=== PATIENT | female | born 1965 | race African-American/Black ===

== ENCOUNTER → 2016-11-19 | Outpatient (CLI) | payer OTHER ==
[~2016-11-19] MED LIST: ALBUTEROL17 GM INH; ALL DAY ALLERGY10 M3 PO; BREO ELLIPTA 11 EACH INH; DOK PLUS TABLE1 EACH PO; FLUOXETINE HCL40 MG PO; LISINOPRIL20 MG PO; MOBIC15 MG PO; NORCO1 TAB 10/3 PO; PERCOCET10 PO; PROZAC40 M1 PO; SLOW RELEASE47.5 MG PO; XARELTO10 MG PO; ZESTRIL40 MG PO
--- NOTE | ~2016-11-19 | EKG ---
PATIENT: TIFFANY TELLEZ UNIT #: [id number] Ventricular Rate: 63 BPM Atrial Rate: 63 BPM P-R Interval: 200 ms QRS Duration: 80 ms Q-T Interval: 400 ms QTC Calculation(Bezet): 409 ms P Mccurtain: 53 degrees Calculated R Mccurt[place]: 35 degrees Calculated T Mccurtain: 27 degrees Diagnosis Line: Normal sinus rhythm Diagnosis Line: Normal ECG Diagnosis Line: When compared with ECG of 21-MAY-2016 08:23, Diagnosis Line: No significant change was found Diagnosis Line: Confirmed by LIO PAZ MD ([id number]) on Diagnosis Line: 11/19/2016 5:10:13 PM INTERPRETING MD: JACKSON MORSE
[2016-11-19 09:38] LABS: HEMATOCRIT 37.7 % (35.0-45.0); HEMOGLOBIN 12.7 gm/dL (12.0-16.0); MEAN CELL VOLUME 88.3 FL (83-96); MEAN CORPUSCULAR HEMOGLOBIN 29.8 PG (28-34); MEAN CORPUSCULAR HGB CONC 33.7 g/dL (30-36); MEAN PLATELET VOLUME 9.2 FL (6.5-11.5); RED BLOOD COUNT 4.27 X10e (3.90-5.30); RED CELL DISTRIBUTION WIDTH 14.5 % (11.0-15.5); WHITE BLOOD COUNT 4.9 X10e3 (4.0-10.5)
[2016-11-19 09:43] LABS: URINE APPEARANCE CLEAR; URINE BILIRUBIN NEG (NEG); URINE BLOOD NEG (NEG); URINE COLOR YELLOW; URINE GLUCOSE NEG (NEG); URINE KETONE NEG (NEG); URINE LEUKOCYTE ESTERASE NEG (NEG); URINE NITRATE NEG (NEG); URINE PH 5.5 (5-8); URINE PROTEIN NEG (NEG); URINE SPECIFIC GRAVITY 1.014 (1.003-1.035); URINE UROBILINOGEN 0.2 MG/DL (NEG)
[2016-11-19 09:55] LABS: URINE SOURCE CLEAN CATCH
[2016-11-19 09:56] LABS: CULTURE INDICATED? NO
[2016-11-19 10:30] LABS: BUN/CREATININE RATIO 14.44; CALCIUM SERUM 9.4 mg/dL (8.4-10.2); CREATININE SERUM 0.9 mg/dL (0.6-1.4); GLOM FILT RATE Estimated 84.7 mL/min (>60)
== END | disposition home or self-care (01) ==
LOC: CAMB 07:05
PROVIDERS: Orthopaedic Surgery
DX: Z01.818 Encounter for other preprocedural examination (principal); M17.12 Unilateral primary osteoarthritis, left knee
CPT/HCPCS: 36415; 80048; 81003; 85027; 86850; 86900; 86901; 87070; 93005

== ENCOUNTER 2016-12-03 10:51 | Inpatient (IN) | payer OTHER ==
[~2016-12-03] VITALS: Ht 162.6 cm; Wt 104.7 kg
--- NOTE | ~2016-12-03 | HP ---
Unit #: [id number] #: [id number] Patient: TIFFANY TELLEZ [id number] [address] [place], [place] [address] [id number] O MR#: [id number] NAME: TIFFANY TELLEZ ROOM: Age: Sex: F Admission Date: 12/03/2016 : 1965 Attending Physician: Sultana Mcdermott M.D. Primary Care Physician: Generic Doctor Not In System HISTORY AND PHYSICAL CHIEF COMPLAINT Left knee pain. HISTORY OF PRESENT ILLNESS The patient is a 51-year-old female who has undergone previous end-stage right knee arthritis treatment with total knee arthroplasty six months ago. She is now admitted for left total knee arthroplasty for similar end-stage knee arthritis affecting primarily her lateral compartment. She understands the risks of the procedure to include bleeding, infection, nerve damage, loosening of the prosthesis, infection of the prosthesis, need for multiple revision surgeries in the future. She has failed conservative care to include multiple cortisone injections, physical therapy, bracing and oral narcotics. She has 11 degrees of genu valgum. PAST MEDICAL HISTORY Past medical history is remarkable for hypertension, allergic rhinitis, ankle avascular necrosis, depression, hypertension, migraines and rheumatoid arthritis. PAST SURGICAL HISTORY , hysterectomy, ankle fusion, knee arthroscopy. HOME MEDICATIONS Fluoxetine, Vicodin, lisinopril, lorazepam, oxycodone, promethazine. ALLERGIES None. FAMILY HISTORY Alcohol abuse, arthritis, asthma, breast cancer, stroke, depression, colon cancer. SOCIAL HISTORY The patient is a [id number] smoker. She drinks alcohol socially. PHYSICAL EXAMINATION GENERAL: In general this is a well-developed well-nourished female in no acute distress. HEENT: Pharynx is clear. NECK: The neck is supple, without masses. HEART: Exam reveals a regular sinus rhythm, without murmurs or gallops. LUNGS: The lungs are clear. ABDOMEN: The abdomen is soft and nontender, without masses or Unit #: [id number] #: [id number] Patient: TIFFANY TELLEZ organomegaly. EXTREMITIES: Evaluation of the left knee shows 10 degree of genu valgum. Range of motion is 0 to 130 degrees. The medial and lateral collateral ligaments are stable. The patient is maximally tender in the lateral joint line. Mian test is negative. Pivot shift test is negative. Posterior tibial sag test is negative. Pulses are intact. DIAGNOSTIC STUDIES IMAGING: Standing x-rays of the left knee show lateral joint space narrowing with subchondral sclerosis of the lateral compartment and osteophyte formation. ADMITTING DIAGNOSIS End-stage left knee arthritis with lateral compartment arthritis and genu valgum. PLAN The patient has failed conservative care. She is admitted for elective left total knee arthroplasty. Risks and benefits have been described above and she agrees to proceed. Dictated by Deborah Gold/marce TD: 12/02/2016 20:36 JOB #: [id number] HISTORY AND PHYSICAL Page 1 of 1 X Shaheen Mcdermott MD X HISTORY AND PHYSICAL
--- NOTE | ~2016-12-03 | DS ---
Unit #: [id number] #: [id number] Patient: TIFFANY TELLEZ [id number] [address] [place], [place] [address] [id number] I MR#: [id number] NAME: TIFFANY TELLEZ ROOM: 448 Age: 51 Sex: F Admission Date: 12/03/2016 : 1965 Discharge Date: 12/05/2016 Attending Physician: Sultana Mcdermott M.D. Primary Care Physician: Generic Doctor Not In System DISCHARGE SUMMARY CHIEF COMPLAINT Left knee pain. HISTORY OF PRESENT ILLNESS The patient is a 51-year-old female with endstage left knee arthritis affecting primarily her lateral compartment. She has a significant valgus deformity. She has not responded to conservative care. She is admitted for elective total knee arthroplasty. HOSPITAL COURSE The patient was taken to the operating room on the date of admission, where she underwent left total knee arthroplasty using the [place] Triathlon posterior constrained knee. There were no operative complications. On her first postoperative day she pulled out her drain inadvertently. Dressing was changed. Wounds were healing well. She was seen by physical therapy on a daily basis and instructed on weightbearing and range of motion exercises. She remained afebrile with stable vital signs. Her hematocrit was 32.8% on the first postoperative day and 28.5% hematocrit on the second postoperative day. Her MESH WORKER was discontinued on the second postoperative day. She is ready for discharge on the third postoperative day. FINAL DIAGNOSIS Left knee degenerative arthritis. DISPOSITION/RECOMMENDATIONS 1. The patient is discharged home. She will weight bear as tolerated on her left leg. Will arrange home physical therapy for the patient to be seen. Her dressing will be changed on a daily basis. 2. Follow up in my office in 10-14 days for wound check and possible staple removal. DISCHARGE MEDICATIONS 1. Home medications. 2. Percocet 5/325 mg 1-2 p.o. q.4-6 h. p.r.n. pain. 3. Xarelto 10 mg p.o. daily for a total of 2 weeks postoperatively. Dictated by.Deborah Patiño/raina TD: 12/06/2016 10:56 Unit #: [id number] #: [id number] Patient: TIFFANY TELLEZ JOB #: [id number] DISCHARGE SUMMARY Page 1 of 1 X Shaheen Mcdermott MD X DISCHARGE SUMMARY
--- NOTE | ~2016-12-03 | OR ---
Unit #: [id number] #: [id number] Patient: TIFFANY TELLEZ [id number] [address] [place], [place] [address] [id number] MR#: [id number] NAME: TIFFANY TELLEZ ROOM: [facility] Date of Procedure: 12/03/2016 Admission Date: 12/03/2016 Surgeon: Sultana Mcdermott M.D. : 1965 Attending Physician: Sultana Mcdermott M.D. Primary Care Physician: Generic Doctor Not In System OPERATIVE REPORT PREOPERATIVE DIAGNOSIS Left knee degenerative arthritis. POSTOPERATIVE DIAGNOSIS Left knee degenerative arthritis. PROCEDURE PERFORMED Left total knee arthroplasty (89896). ASSISTANTS [place]. ANESTHESIA General. INDICATIONS FOR SURGERY The patient is a 51-year-old female with end-stage left knee arthritis unresponsive to conservative care. She has lateral compartment arthritis with significant valgus and will therefore undergo left total knee arthroplasty. Risks and benefits of this procedure have been discussed with the patient. DESCRIPTION OF PROCEDURE The patient was taken to the operating room and placed in supine position and general anesthetic was induced. The left knee was identified as the correct operative extremity during the time-out procedure. The IV antibiotic protocol was followed. The left leg was then prepped and draped in the usual sterile fashion. The leg was exsanguinated and the thigh tourniquet inflated to 300 mmHg. An anterior longitudinal incision was made over the knee measuring 15 cm. Subcutaneous tissue was carefully divided. The knee was opened through a medial parapatellar approach. The anterior fat pad was excised. The [place] triathlon posterior constrained system was used for definitive knee replacement. The medial collateral ligament was released back to the midline. A drill hole was then placed in the center of the femoral canal. The femoral alignment shelley was placed. A 5 degree valgus cut was selected with a 10 mm resection of the distal femur and 8 mm resection did not take off enough medial distal femur. The femur was sized at a #5. The #5 cutting block was applied and pinned into place. The anterior-posterior and chamfer cuts were then made. The notch cutting guide was then pinned into place and the notch cut was made. The #5 femoral trial fit appropriately. The drill was then used to enter the tibial intramedullary canal. The Unit #: [id number] #: [id number] Patient: TIFFANY TELLEZ menisci were excised. The guide shelley was placed and the tibial cutting guide was adjusted, so that a 2 mm of bone will be taken off the lateral side, which was the more affected side. The tibial cut was made and found to be deficient. Therefore, an additional 2 mm of bone was taken. The tibia was sized at a #5. The #5 tibial trial was placed with a 9 mm spacer and a trial reduction was performed. The knee was stable in flexion and extension. The tibial trial was then pinned into place. The keel punch was used. The patella was then prepared with a free cut, removing 8 mm thickness of bone. A 32 mm diameter asymmetric guide was then used to make 3 drill holes in the patella. All bony surfaces were lavaged and dried with the pulse irrigation. The final #5 tibial component was cemented into place. The #5 posterior constrained femoral component was impacted into place. The 32 mm diameter patellar component was cemented into place. All cement which was excessive was removed prior to curing of the cement. The 9 mm trial insert was placed and was found to afford proper stability. Therefore, a 9 mm polyethylene tray was impacted into place and fit perfectly. The knee was placed through a full range of motion and achieved full extension with full flexion. The knee was stable to varus and valgus stress at 0 degrees extension and 30 degrees flexion. Again, pulse irrigation was used. A medium Hemovac drain was placed. The knee capsule and quadriceps tendon were then closed with multiple 0 Vicryl [id number] sutures. Subcutaneous tissue was closed with 2-0 Vicryl. The skin was closed with skin doug. Betadine ointment and dressing sponges were taped into place. Cast padding and Brody wraps were used and knee immobilizer was placed. The patient was then awakened in the operating room and transported to the recovery room in stable condition. ESTIMATED BLOOD LOSS 100 mL. COMPLICATIONS None. SPECIMENS None. TOURNIQUET TIME 79 minutes. Dictated byDeborah Garcia/oralia TD: 12/03/2016 20:34 JOB #: [id number] Unit #: [id number] #: [id number] Patient: TIFFANY TELLEZ OPERATIVE REPORT Page 1 of 1 X Shaheen Mcdermott MD PROCEDURE OPERATIVE NOTE
--- NOTE | ~2016-12-03 | CR169 ---
[facility] A Service of [facility] RADIOLOGY TEXT RESULTS PATIENT: TIFFANY TELLEZ LOCATION: [facility] 448-01 : [birth year] UNIT #: [id number] AGE: [address]: Shaheen Mcdermott MD SEX: F ORDER DR: [id number] [facility] [address] [facility]. [place], [place] [address] [id number] I MR#: [id number] Acc #: [id number] NAME: TIFFANY TELLEZ : 1965 SEX: F STUDY DATE/TIME: 12/03/2016 19:08 UNIT: [facility] ROOM: [facility] STUDY DESCRIPTION: CR Knee 2 Views Lt Attending Physician: Sultana Mcdermott M.D. Ordering Physician: Sultana Mcdermott M.D. Primary Care Physician: Generic Doctor Not In System MEDICAL IMAGING REPORT This report is preliminary unless electronic signature is present EXAM Left knee 2 views 12/03/2016 19:08 hours. HISTORY Knee pain, postop knee replacement today. COMPARISON 10/07/2016. FINDINGS AP and cross-table lateral views demonstrate interval total knee replacement with anatomic alignment. No fracture seen. A surgical drain is present. IMPRESSION Postop left knee replacement with anatomic alignment. No fracture seen. A surgical drain is present. Dictated by... Paz Mercado M.D. THIS IS AN ELECTRONICALLY VERIFIED REPORT Paz Mercado M.D. at 12/04/2016 9:14 AM HUGH/raina TD: 12/04/2016 08:19 JOB #: [id number] MEDICAL IMAGING REPORT Page 1 of 1 COPY
[~2016-12-03 10:51] MED LIST changes: -DOK PLUS TABLE1 EACH PO; -PERCOCET10 PO; -SLOW RELEASE47.5 MG PO
[2016-12-03 19:35] LABS: HEMATOCRIT 38.7 % (35.0-45.0); HEMOGLOBIN 12.8 gm/dL (12.0-16.0)
[2016-12-04 03:08] LABS: BASOPHIL% 0.2 % (0-2.5); HEMATOCRIT 32.8 % (35.0-45.0); HEMOGLOBIN 10.9 gm/dL (12.0-16.0); LYMPHOCYTE# 1.1 X10e3 (1.0-3.5); LYMPHOCYTE% 10.7 % (17.0-45.0); MEAN CELL VOLUME 89.2 FL (83-96); MEAN CORPUSCULAR HEMOGLOBIN 29.7 PG (28-34); MEAN CORPUSCULAR HGB CONC 33.3 g/dL (30-36); MEAN PLATELET VOLUME 9.1 FL (6.5-11.5); MONOCYTE# 0.5 X10e3 (0-1.0); MONOCYTE% 4.7 % (3.0-12.0); NEUTROPHIL# 8.4 X10e3 (1.5-7.1); NEUTROPHIL% 84.4 % (40-75); PLATELET COUNT 189 X10e3 (140-420); RED BLOOD COUNT 3.67 X10e (3.90-5.30); RED CELL DISTRIBUTION WIDTH 15.2 % (11.0-15.5)
[2016-12-04 03:09] LABS: DIFF IND NO
[2016-12-05 04:12] LABS: BASOPHIL% 0.5 % (0-2.5); EOSINOPHIL# 0.1 X10e3 (0-0.7); EOSINOPHIL% 1.3 % (0.0-7.0); HEMATOCRIT 28.5 % (35.0-45.0); HEMOGLOBIN 9.3 gm/dL (12.0-16.0); LYMPHOCYTE# 1.7 X10e3 (1.0-3.5); LYMPHOCYTE% 23.3 % (17.0-45.0); MEAN CELL VOLUME 90.4 FL (83-96); MEAN CORPUSCULAR HEMOGLOBIN 29.5 PG (28-34); MEAN CORPUSCULAR HGB CONC 32.7 g/dL (30-36); MEAN PLATELET VOLUME 9.5 FL (6.5-11.5); MONOCYTE# 0.9 X10e3 (0-1.0); MONOCYTE% 12.4 % (3.0-12.0); NEUTROPHIL# 4.7 X10e3 (1.5-7.1); NEUTROPHIL% 62.5 % (40-75); PLATELET COUNT 148 X10e3 (140-420); RED BLOOD COUNT 3.15 X10e (3.90-5.30); RED CELL DISTRIBUTION WIDTH 15.6 % (11.0-15.5); WHITE BLOOD COUNT 7.5 X10e3 (4.0-10.5)
[2016-12-05 04:14] LABS: DIFF IND NO
[2016-12-06 02:24] LABS: BASOPHIL% 0.5 % (0-2.5); DIFF IND YES; EOSINOPHIL# 0.2 X10e3 (0-0.7); EOSINOPHIL% 3.2 % (0.0-7.0); HEMATOCRIT 22.8 % (35.0-45.0); HEMOGLOBIN 7.7 gm/dL (12.0-16.0); LYMPHOCYTE# 1.7 X10e3 (1.0-3.5); MEAN CELL VOLUME 89.3 FL (83-96); MEAN CORPUSCULAR HEMOGLOBIN 30.4 PG (28-34); MEAN PLATELET VOLUME 9.1 FL (6.5-11.5); MONOCYTE# 0.8 X10e3 (0-1.0); MONOCYTE% 12.1 % (3.0-12.0); NEUTROPHIL# 3.7 X10e3 (1.5-7.1); NEUTROPHIL% 57.2 % (40-75); PLATELET COUNT 129 X10e3 (140-420); RED BLOOD COUNT 2.55 X10e (3.90-5.30); RED CELL DISTRIBUTION WIDTH 15.3 % (11.0-15.5); WHITE BLOOD COUNT 6.5 X10e3 (4.0-10.5)
[2016-12-06 02:51] LABS: ANISOCYTOSIS SL; HYPOCHROMIA SL; PLATELET ESTIMATE NORMAL (NORMAL)
[2016-12-06] MEDS ORDERED: PERCOCET10 PO (07:05)
[2016-12-06] MEDS ORDERED: XARELTO10 MG PO (07:06)
[2016-12-06] MEDS ORDERED: DOK PLUS TABLE1 EACH PO (07:11)
[2016-12-06] MEDS ORDERED: SLOW RELEASE47.5 MG PO (09:16)
== END 2016-12-06 12:32 | disposition home or self-care (01) | DRG 470 ==
LOC: CSUR 10:51 → C4B 17:30 → CSUR 20:22 → C4B 20:22
PROVIDERS: Orthopaedic Surgery
PROC: 0SRD0J9 Replacement of Left Knee Joint with Synthetic Substitute, Cemented, Open Approach (ICD-10-PCS; principal; 2016-12-03 14:00)
DX: M17.12 Unilateral primary osteoarthritis, left knee (principal); M06.9 Rheumatoid arthritis, unspecified; I10 Essential (primary) hypertension; F32.9 Major depressive disorder, single episode, unspecified; G43.909 Migraine, unspecified, not intractable, without status migrainosus; Z90.710 Acquired absence of both cervix and uterus; Z80.3 Family history of malignant neoplasm of breast; Z80.0 Family history of malignant neoplasm of digestive organs; Z81.1 Family history of alcohol abuse and dependence; Z82.61 Family history of arthritis; Z82.5 Family history of asthma and other chronic lower respiratory diseases; F17.200 Nicotine dependence, unspecified, uncomplicated; M21.062 Valgus deformity, not elsewhere classified, left knee
CPT/HCPCS: 73560; 85014; 85018; 85025; 97110; 97116; 97161; 97530; 97535; C1776; G8978-GP; G8979-GP; G8980-GP; J0690; J1100; J1885; J2250; J2270; J2405; J2765; J2795; J3010; J3370